=== PATIENT | female | born 1980 | race Caucasian/White ===

== ENCOUNTER 2023-09-10 13:28 | Outpatient (CLI) | payer OTHER, SELFPAY ==
--- NOTE | ~2023-09-10 | MM_ITS ---
EXAMINATION: MM scrn vania implant BI w deidre HISTORY: Screening mammogram TECHNIQUE: Craniocaudal and mediolateral oblique 3-D tomosynthesis images with implant displacement a nd synthetic 2-D images were generated. Craniocaudal and mediolateral oblique views of the breasts wi thout implant displacement were obtained using full field digital mammography. CAD analysis was submi tted and interpreted. COMPARISON: 02/02/2012 BREAST PARENCHYMAL COMPOSITION: Dense: The breasts are extremely dense, which lowers the sensitivity of mammography. FINDINGS: There is no evidence of suspicious mass, calcification, or architectural distortion to sugg est malignancy in either breast. There has been no suspicious interval change. IMPRESSION: 1. No mammographic evidence of malignancy. 2. Recommend routine screening mammography in one year. BI-RADS Category 1: Negative Reviewed, dictated and finalized at location B.
== END 2023-09-10 13:29 ==
LOC: MICIMG 13:30
PROVIDERS: PCP Obstetrics & Gynecology; Visit Provider Obstetrics & Gynecology
DX: Z12.31 Encounter for screening mammogram for malignant neoplasm of breast (principal)
CPT/HCPCS: 77063; 77067

== ENCOUNTER 2024-10-22 13:28 | Outpatient (CLI) | payer OTHER, SELFPAY ==
--- NOTE | ~2024-10-22 | MM_ITS ---
EXAMINATION: MM scrn vania implant BI w deidre INDICATION: Asymptomatic, referred for screening mammogram COMPARISON: 09/10/2023 and 02/02/2012 TECHNIQUE: Digital Breast Tomosynthesis CC, MLO, and implant displaced CC and MLO views of Both breasts were obtained with computer-aided detection to assist in interpretation of the study. FINDINGS: The breasts are heterogeneously dense, which may obscure small masses. Bilateral breast Retropectoral Saline implants in place appears intact. There is a mass with partially obscured margins located in the inferior lateral middle third within the right breast. No other focal dominant mass, architectural distortion, or suspicious microcalcifications are identified. IMPRESSION: 1. Right breast mass. 2. No evidence of malignancy in the left breast. 3. Both breasts Retropectoral Saline implants appears intact. RECOMMENDATION: Diagnostic right mammography with appropriate spot compression views and correlative right breast ultrasound. BI-RADS Category 0: Incomplete: Needs additional imaging evaluation. Reviewed, dictated and finalized at location B. IMPRESSION: 1. Right breast mass. 2. No evidence of malignancy in the left breast. 3. Both breasts Retropectoral Saline implants appears intact. RECOMMENDATION: Diagnostic right mammography with appropriate spot compression views and correl ative right breast ultrasound. BI-RADS Category 0: Incomplete: Needs additional imaging evaluation.
== END 2024-10-22 13:29 | disposition home or self-care (01) ==
LOC: MICIMG 13:28
PROVIDERS: PCP Family Medicine; Visit Provider Student in an Organized Health Care Education/Training Program
DX: Z12.31 Encounter for screening mammogram for malignant neoplasm of breast (principal); R92.8 Other abnormal and inconclusive findings on diagnostic imaging of breast
CPT/HCPCS: 77063; 77067

== ENCOUNTER 2024-12-02 07:55 | Outpatient (CLI) | payer OTHER, SELFPAY ==
--- NOTE | ~2024-12-02 | MMUS_ITS ---
EXAMINATION: MM diag vania implant RT w deidre, US breast RT limited INDICATION: 44-year old female; BI-RADS 0, callback from screening to evaluate right breast finding COMPARISON: 10/22/2024 TECHNIQUE: Digital breast tomosynthesis True lateral and spot compression CC and MLO views of the RIGHT breast were obtained with computer-aided detection to assist in interpretation of the study. FINDINGS: The breasts are heterogeneously dense, which may obscure small masses. The finding of concern in the inferior lateral right breast effaces on spot compression views compatible with superimposition of fibroglandular tissue. RIGHT BREAST ULTRASOUND FINDINGS: Targeted evaluation of the area of concern was completed. No suspicious solid or cystic mass seen. IMPRESSION: RIGHT breast finding of concern represents superimposition of fibroglandular tissue. RECOMMENDATION: Annual screening mammography in 12 months. BI-RADS 2, BENIGN Reviewed, dictated and finalized at location C. IMPRESSION: RIGHT breast finding of concern represents superimposition of fibroglandular ti ssue. RECOMMENDATION: Annual screening mammography in 12 months. BI-RADS 2, BENIGN
== END 2024-12-02 07:56 | disposition home or self-care (01) ==
LOC: MICIMG 07:56
PROVIDERS: PCP Family Medicine; Visit Provider Student in an Organized Health Care Education/Training Program
DX: R92.8 Other abnormal and inconclusive findings on diagnostic imaging of breast (principal)
CPT/HCPCS: 76642; 77061; 77065; G0279